=== PATIENT | female | born 1980 | race Caucasian/White ===

== ENCOUNTER 2017-05-11 00:20 | Emergency (ER) | payer OTHER ==
[~2017-05-11] VITALS: Ht 165.1 cm; Wt 88.5 kg
[~2017-05-11 00:20] MED LIST: ACETAMINOPHEN-H1 TA2 PO; AUGMENTIN 875875 MG PO; CIPRO 400400 MG/200 IV; GOOD SENSE ALLE10 MG PO; LISINOPRIL20 MG PO; NAPROSYN500 MG PO; NIFEREX150 MG PO; PREDNISONE20 M1 PO; TOBI IV; VANCOMYCIN IV; VICODIN ES 7501 TA1 PO; VITAMIN D50000 I1 PO; [UNRECOGNIZED DRUG - OTHER] IV
[2017-05-11 00:49] LABS: BASO % 0.4 % (0.0-1.0); EOS # 0.1 10*3/uL (0.0-0.4); EOS % 1.3 % (1.0-4.0); HEMATOCRIT 39.7 % (37.0-47.0); HEMOGLOBIN 13.2 g/dl (12.0-16.0); LYMPH # 2.8 10*3/uL (1.3-4.4); LYMPH % 27.6 % (27.0-41.0); MEAN CELL VOLUME 89.8 fl (81.0-99.0); MEAN CORPUSCULAR HGB 29.9 pg (27.0-31.0); MEAN CORPUSCULAR HGB CONC 33.2 g/dl (33.0-37.0); MEAN PLATELET VOLUME 10.5 fl (9.6-12.3); MONO # 0.7 10*3/uL (0.1-1.0); MONO % 6.8 % (3.0-9.0); NEUT # 6.4 10*3/uL (2.3-7.9); NEUT % 62.5 % (47.0-73.0); PLATELET COUNT AUTOMATED 276 10*3/uL (130-400); RED BLOOD COUNT 4.42 10*6/uL (4.10-5.10); RED CELL DISTRI WIDTH 12.4 % (0-14.5); WHITE BLOOD COUNT 10.2 10*3/uL (4.8-10.8)
[2017-05-11 01:20] LABS: ALBUMIN 3.3 gm/dl (3.1-4.5); ALKALINE PHOSPHATASE 50 U/L (45-117); BUN 15 mg/dl (7-24); CHLORIDE 107 mmol/L (98-107); CREATININE 0.67 mg/dL (0.55-1.02); POTASSIUM 3.4 mmol/L (3.5-5.1); SGOT/AST 8 IU/L (3-35); SGPT/ALT 18 U/L (12-78); SODIUM 139 mmol/L (136-145); TOTAL PROTEIN 6.6 gm/dL (6.4-8.2)
[2017-05-11 01:22] LABS: TROPONIN I < 0.015 ng/ml (<0.045)
[2017-05-11 01:47] VITALS: BP 147/82
== END 2017-05-11 01:47 | disposition home or self-care (01) ==
LOC: ED 00:20
PROVIDERS: Student in an Organized Health Care Education/Training Program
DX: J06.9 Acute upper respiratory infection, unspecified (principal); Z79.899 Other long term (current) drug therapy

== ENCOUNTER → 2017-07-31 | Outpatient (CLI) | payer OTHER | END | disposition home or self-care (01) | LOC: MRI 13:00 | DX: M54.5 Low back pain (principal); M25.559 Pain in unspecified hip ==

== ENCOUNTER 2017-10-20 14:18 | Emergency (ER) | payer OTHER ==
[~2017-10-20] VITALS: Ht 165.1 cm; Wt 86.2 kg
[2017-10-20 14:21] VITALS: BP 154/85
[2017-10-20 15:06] LABS: BASO # 0.1 10*3/uL (0.0-0.1); BASO % 0.5 % (0.0-1.0); EOS # 0.2 10*3/uL (0.0-0.4); EOS % 1.9 % (1.0-4.0); HEMATOCRIT 43.3 % (37.0-47.0); HEMOGLOBIN 14.2 g/dl (12.0-16.0); LYMPH # 2.8 10*3/uL (1.3-4.4); LYMPH % 27.4 % (27.0-41.0); MEAN CELL VOLUME 89.1 fl (81.0-99.0); MEAN CORPUSCULAR HGB 29.2 pg (27.0-31.0); MEAN CORPUSCULAR HGB CONC 32.8 g/dl (33.0-37.0); MEAN PLATELET VOLUME 11.2 fl (9.6-12.3); MONO # 0.7 10*3/uL (0.1-1.0); MONO % 7.3 % (3.0-9.0); NEUT # 6.3 10*3/uL (2.3-7.9); NEUT % 62.3 % (47.0-73.0); PLATELET COUNT AUTOMATED 273 10*3/uL (130-400); RED BLOOD COUNT 4.86 10*6/uL (4.10-5.10); RED CELL DISTRI WIDTH 12.4 % (0-14.5)
[2017-10-20 15:11] LABS: BILIRUBIN 1+ (NEGATIVE); BLOOD 2+ (NEGATIVE); CLARITY TURBID (CLEAR); COLOR YELLOW (YELLOW); GLUCOSE NEGATIVE (NEGATIVE); KETONE 2+ (NEGATIVE); LEUKO ESTERASE 2+ (NEGATIVE); NITRITE NEGATIVE (NEGATIVE); PH 5.5 (5.0-9.0); SPECIFIC GRAVITY >= 1.030 (1.005-1.030); UROBILINOGEN 0.2 E.U./dl (0.2-1.0)
[2017-10-20 15:17] LABS: BUN 13 mg/dl (7-24); CHLORIDE 101 mmol/L (98-107); CREATININE 0.72 mg/dL (0.55-1.02); POTASSIUM 3.4 mmol/L (3.5-5.1); SODIUM 138 mmol/L (136-145)
[2017-10-20 15:18] LABS: URINE AMPHETAMINES > 1000 (1000ng/ml); URINE BARBITURATES < 200 (200ng/ml); URINE BENZODIAZEPINES < 200 (200ng/ml); URINE CANNABINOIDS (THC) > 50 (50ng/ml); URINE COCAINE < 300 (300ng/ml); URINE METHADONE < 300 (300ng/ml); URINE OPIATES > 300 (300ng/ml)
[2017-10-20 15:20] LABS: URINE PHENCYCLIDINE < 25 (25ng/ml)
[2017-10-20 15:20] LABS: ACETAMINOPHEN (TYLENOL) < 2.0 ug/ml (10-30); ETHYL ALCOHOL < 3.0 mg/dl (<3)
[2017-10-20 15:28] LABS: BACTERIA 4+; EPITHELIAL CELLS TNTC; MUCOUS TRACE; RBC TNTC rbc/hpf (0-2); WBC TNTC wbc/hpf (0-5)
[2017-10-20] MEDS ORDERED: FLAGYL500 MG PO (16:43)
[2017-10-20] MEDS ORDERED: DIFLUCAN150 MG PO (16:43)
[2017-10-20] MEDS ORDERED: LEVAQUIN250 M1 PO (16:43)
== END 2017-10-20 16:49 | disposition home or self-care (01) ==
LOC: ED 14:18
PROVIDERS: Emergency Medicine
DX: N39.0 Urinary tract infection, site not specified (principal); A59.9 Trichomoniasis, unspecified; Z79.899 Other long term (current) drug therapy

== ENCOUNTER → 2018-12-14 | Outpatient (CLI) | payer OTHER ==
[~2018-12-14] MED LIST changes: +CEPHALEXIN500 M1 PO; +DIFLUCAN150 MG PO; +FLAGYL500 MG PO; +LEVAQUIN250 M1 PO; +SEPTDS PO
== END | disposition home or self-care (01) ==
LOC: US 14:30
DX: R60.0 Localized edema (principal)

== ENCOUNTER 2018-12-15 15:12 | Emergency (ER) | payer OTHER ==
[~2018-12-15] VITALS: Ht 165.1 cm; Wt 75.3 kg
[2018-12-15 15:12] VITALS: BP 179/94
[~2018-12-15 15:12] MED LIST changes: -CEPHALEXIN500 M1 PO; -SEPTDS PO
[2018-12-15] MEDS ORDERED: SEPTDS PO (15:35)
[2018-12-15] MEDS ORDERED: CEPHALEXIN500 M1 PO (15:35)
== END 2018-12-15 15:50 | disposition home or self-care (01) ==
LOC: ED 15:12
DX: L03.116 Cellulitis of left lower limb (principal); L03.115 Cellulitis of right lower limb; I10 Essential (primary) hypertension; F17.200 Nicotine dependence, unspecified, uncomplicated; Z79.2 Long term (current) use of antibiotics; Z79.899 Other long term (current) drug therapy

== ENCOUNTER 2018-12-30 14:29 | Inpatient (IN) | payer OTHER ==
[~2018-12-30] VITALS: Ht 165.1 cm; Wt 75.4 kg
[~2018-12-30 14:29] MED LIST changes: +CEPHALEXIN500 M1 PO; +SEPTDS PO
[2018-12-30 14:40] VITALS: BP 141/91
--- NOTE | 2018-12-30 14:45 | NUR ---
Time: 1444 A 38 year old FEMALE admitted to under services of DR. MELCHOR BENTLEY,ARIEL. Pt. arrived via ambulatory from [facility]. Chief complaint: CELLULITIS, EDEMA TO L LOWER EXT. AARON SHORE
[2018-12-30] MEDS ORDERED: HYDROCODONE-AC1 EAC1 PO (15:49)
[2018-12-30] MEDS ORDERED: BUSPAR15 MG PO (15:50)
[2018-12-30] MEDS ORDERED: CYCLOBENZAPRINE10 MG PO (15:51)
[2018-12-30] MEDS ORDERED: MELOXICAM7.5 MG PO (15:54)
[2018-12-30 16:00] VITALS: BP 149/98
[2018-12-30 16:38] LABS: BASO # 0.1 10*3/uL (0.0-0.1); BASO % 0.7 % (0.0-1.0); EOS # 0.2 10*3/uL (0.0-0.4); EOS % 2.6 % (1.0-4.0); HEMATOCRIT 40.8 % (37.0-47.0); HEMOGLOBIN 13.2 g/dl (12.0-16.0); LYMPH # 2.4 10*3/uL (1.3-4.4); LYMPH % 29.4 % (27.0-41.0); MEAN CELL VOLUME 90.7 fl (81.0-99.0); MEAN CORPUSCULAR HGB 29.3 pg (27.0-31.0); MEAN CORPUSCULAR HGB CONC 32.4 g/dl (33.0-37.0); MEAN PLATELET VOLUME 10.4 fl (9.6-12.3); MONO # 0.5 10*3/uL (0.1-1.0); MONO % 6.3 % (3.0-9.0); NEUT # 4.9 10*3/uL (2.3-7.9); PLATELET COUNT AUTOMATED 292 10*3/uL (130-400); RED CELL DISTRI WIDTH 12.6 % (0-14.5); WHITE BLOOD COUNT 8.2 10*3/uL (4.8-10.8)
[2018-12-30 16:49] LABS: BUN 14 mg/dl (7-24); CHLORIDE 105 mmol/L (98-107); CREATININE 0.72 mg/dL (0.55-1.02); POTASSIUM 3.8 mmol/L (3.5-5.1); SODIUM 137 mmol/L (136-145)
[2018-12-30 20:00] VITALS: BP 143/89
[2018-12-31] VITALS: BP 130/81
[2018-12-31 08:00] VITALS: BP 134/84
--- NOTE | 2018-12-31 08:11 | NUR ---
DR ROCHE IN TO SEE PATIENT.
--- NOTE | 2018-12-31 08:15 | NUR ---
PATIENT TRANSPORTED TO MRI.
--- NOTE | 2018-12-31 08:20 | NUR ---
PATIENT MEDICATED WITH NORCO, REFUSED 6 AM SCHEDULED NORCO, BUT IS NOW REQUESTIG DOSE. RATES BACK AND LEG PAIN 10/10 ON 0/10 SCALE. WILL MONITOR FOR EFFETIVENESS.
--- NOTE | 2018-12-31 09:00 | NUR ---
Skein Bander in to see patient. She is currently not in her room. Will follow up at a later time.
[2018-12-31 12:00] VITALS: BP 127/77
--- NOTE | 2018-12-31 13:37 | NUR ---
SPOKE WITH DR ROCHE. NEW CONSULT FOR PODIETRY ORDERED.
--- NOTE | 2018-12-31 13:40 | NUR ---
NEW PODIETRY CONSULT CALLED TO DR BYRNES.
--- NOTE | 2018-12-31 13:53 | NUR ---
Machine Ii Coremaker in to talk to patient. Patient states lives at home with her children and mother. There are 3 steps in the home. Physician: Dr. Marva Osei [facility] Home health services: none Patient's level of ADLs: INDEPENDENT Patient has working utilities: yes DME: none Follow-up physician's appointment after d/c: she prefers to make her follow up appt after discharge Does patient want to access PORTAL?: no Discharge plan discussed with patient. She lives at home with her mother and her children. She is independent in her ADLs and ambulation. Discussed home health care services and she denies any home needs at this time. When medically stable she will be discharged to home. LAMONT REYNOLDS
[2018-12-31 16:27] VITALS: BP 140/90
--- NOTE | 2018-12-31 17:42 | NUR ---
TORODOL ADMINISTERED FOR PAIN ORDERED. RATES BACK/ANKLE PAIN 9/10 ON 0/10 SCALE. WILL MONITOR FOR EFFECTIVENESS.
--- NOTE | 2018-12-31 18:42 | NUR ---
PATIENT STATES THAT TORODOL WAS EFFECTIVE FOR PAIN, RATES 5/10 ON 0/10 SCALE. WILL CONTINUE TO MONITOR.
[2018-12-31 20:00] VITALS: BP 139/87
--- NOTE | 2018-12-31 22:35 | NUR ---
TORDOL GIVEN PER PRN ORDER FOR C/O LEG PAIN. RATED PAIN A 7/10 WITH 10 BEING THE WORST. SEE EMAR. REINFORCED USE OF CALL LIGHT.
[2019-01-01] VITALS: BP 147/91
[2019-01-01 08:00] VITALS: BP 138/84
--- NOTE | 2019-01-01 13:26 | NUR ---
Discharge instructions reviewed with patient/family. Patient receptive and verbalizes understanding. Follow-up care arranged. Written instructions given to patient/family. RALF SARAVIA
== END 2019-01-01 13:26 | disposition home or self-care (01) | DRG 351 ==
LOC: 4E 14:29
PROVIDERS: ADMIT Internal Medicine
DX: S96.912A Strain of unspecified muscle and tendon at ankle and foot level, left foot, initial encounter (principal); L03.116 Cellulitis of left lower limb; I10 Essential (primary) hypertension; M54.5 Low back pain; G89.29 Other chronic pain; F17.210 Nicotine dependence, cigarettes, uncomplicated; M77.52 Other enthesopathy of left foot and ankle; M65.872 Other synovitis and tenosynovitis, left ankle and foot; M19.072 Primary osteoarthritis, left ankle and foot; X58.XXXA Exposure to other specified factors, initial encounter; Y93.89 Activity, other specified; Y92.89 Other specified places as the place of occurrence of the external cause; Y99.8 Other external cause status; Z87.01 Personal history of pneumonia (recurrent); Z79.899 Other long term (current) drug therapy; Z87.442 Personal history of urinary calculi

== ENCOUNTER → 2023-12-27 | Outpatient (CLI) | payer OTHER ==
[~2023-12-27] MED LIST changes: +BUSPAR15 MG PO; +CYCLOBENZAPRINE10 MG PO; +HYDROCODONE-AC1 EAC1 PO; +MELOXICAM7.5 MG PO
== END | disposition home or self-care (01) ==
LOC: RAD 10:51
PROVIDERS: ATTEND Internal Medicine
DX: M17.11 Unilateral primary osteoarthritis, right knee (principal); M25.562 Pain in left knee